=== PATIENT | female | born 1990 | race Caucasian/White ===

== ENCOUNTER 2016-08-04 07:31 | Day surgery (SDC) | payer OTHER ==
--- NOTE | 2016-08-03 17:32 | HP ---
KIRILL RIDDLE DATE OF SCHEDULED ADMISSION: August 15, 2016 PREOPERATIVE DIAGNOSIS: Desires tubal ligation. OPERATION PLANNED: Laparoscopic tubal ligation. HISTORY: The patient is a 25-year-old 2, para 2 woman with a last menstrual period of three weeks ago. She currently uses oral contraceptives but she wants her tubes tied. She states her family is complete. She understands the procedure is permanent, and there is no guarantee of success. Because of her hypertension, she does not want to keep using the control pills. PAST MEDICAL HISTORY: Has a history of: 1. Hypertension. 2. Acid reflux. CURRENT MEDICATIONS: 1. Omeprazole. 2. She is on an antihypertensive which she is not sure the name of. ALLERGIES: ALBUTEROL CAUSING A RASH. PAST SURGICAL HISTORY: None. SOCIAL HISTORY: Patient lives with her two children. She does not smoke, does not use alcohol. She is [place] speaking. FAMILY HISTORY: No major medical problems in her family. REVIEW OF SYSTEMS: Patient denies any fever, chills, nausea, vomiting, diarrhea, constipation. PHYSICAL EXAMINATION: GENERAL: She is a healthy appearing woman. VITAL SIGNS: Blood pressure is 138/82. HEENT: Normal. LUNGS: Clear. HEART: Normal S1 and S2. ABDOMEN: Soft, nontender, no guarding, no rebound. PELVIC: External genitalia and vagina are normal. Cervix, no motion tenderness. Uterus is normal size. Adnexa nontender, no masses. LABS: test is negative. IMPRESSION: Patient who desires tubal ligation. She understands the procedure is permanent. There is no guarantee of success. PLAN: Plan is to do a laparoscopic tubal ligation.
[~2016-08-04 07:31] MED LIST: FENTANYL 5 ML ONE; IV START KIT ONE; LACTATED RINGERS 1,000 ML ONE; MIDAZOLAM HCL 1 MG/ML 2ML VIAL ONE
[2016-08-04] MEDS ORDERED: BUPIVACAINE 0.5% (PRES FREE) 30 ML VIAL ONE (08:01)
[2016-08-04] MEDS ORDERED: SCOPOLAMINE 1.5 MG/72 HR 1 EACH PATCH TD ONE (08:15)
[2016-08-04] MEDS ORDERED: SODIUM CHLORIDE 0.9% FLUSH 10 ML ONE (08:16)
[2016-08-04] MEDS ORDERED: DEXAMETHASONE SOD PHOS 4 MG/1 ML VIAL ONE (08:47)
[2016-08-04] MEDS ORDERED: DIPHENHYDRAMINE HCL 50 MG/1 ML VIAL ONE (08:47)
[2016-08-04] MEDS ORDERED: ONDANSETRON 4 MG/2ML 2 ML VIAL ONE (08:47)
[2016-08-04] MEDS ORDERED: GLYCOPYRROLATE 0.2 MG/ML 1ML VIAL ONE (08:47)
[2016-08-04] MEDS ORDERED: ROCURONIUM BROMIDE 10 MG/ML DOSE IV ONE (08:47)
[2016-08-04] MEDS ORDERED: PROPOFOL 20 ML IV ONE (08:47)
[2016-08-04] MEDS ORDERED: NEOSTIGMINE METHYLSULFATE 1 MG/ML DOSE ONE (08:47)
[2016-08-04] MEDS ORDERED: LIDOCAINE 2% (PRES FREE) 5 ML VIAL ONE (08:47)
[2016-08-04] MEDS ORDERED: NALOXONE HCL 0.4 MG/ML VIAL IV PRN (08:54)
[2016-08-04] MEDS ORDERED: ONDANSETRON 4 MG/2ML 2 ML VIAL IV PRN (08:54)
[2016-08-04] MEDS ORDERED: FENTANYL 100 MCG/2 ML VIAL IV PRN (08:54)
[2016-08-04] MEDS ORDERED: PROMETHAZINE HCL 25 MG/ML VIAL IM PRN (08:54)
[2016-08-04] MEDS ORDERED: ATROPINE SULFATE 0.4 MG/1 ML VIAL IV PRN (08:54)
[2016-08-04] MEDS ORDERED: LACTATED RINGERS 1,000 ML IV SCH (09:00)
[2016-08-04] MEDS ORDERED: KETOROLAC TROMETHAMINE 30 MG/ML 1 ML VIAL ONE (09:05)
[2016-08-04] MEDS ORDERED: PROMETHAZINE HCL 25 MG/ML VIAL ONE (09:34)
[2016-08-04] MEDS ORDERED: LACTATED RINGERS 1,000 ML ONE (09:38)
[2016-08-04] MEDS ORDERED: HYDROMORPHONE HCL 1 MG/ML SYRINGE ONE ×2 (09:41→09:53)
[2016-08-04] MEDS: HYDROMORPHONE HCL 1 MG/ML SYRINGE IV PRN ×3 (09:42→09:57)
--- NOTE | 2016-08-04 09:49 | OP ---
Jaz Burroughs DATE: 08/04/2016 PREOPERATIVE DIAGNOSIS: Tubal ligation. POSTOPERATIVE DIAGNOSIS: Tubal ligation. OPERATION PERFORMED: Laparoscopic tubal ligation with using Falope rings. PROCEDURE: The patient was taken to the operating and general anesthesia was administered. She was placed in the dorsolithotomy position, prepped and draped in usual sterile fashion. Bimanual exam revealed a normal cervix and normal size uterus which was anteverted. No adnexal masses. Urinary bladder was drained and a Hulka uterine manipulator was inserted into the uterus. Surgeon changed gloves. Subumbilical skin incision was made with a scalpel through which a 5 mm Visiport was inserted. A pneumoperitoneum was then created. A second incision was made suprapubically through which a second 8 mm port was inserted. Findings in the pelvis were normal ovaries, tubes, and uterus. No adhesions. No endometriosis. Each tube was identified by noting its fimbriated end and each tube was ligated with a Falope ring leaving a 2 cm portion of knuckle tissue within the ring. Each area was then bathed with 10 mL of Marcaine. All instruments and gas were removed from the abdomen. The incisions were closed with interrupted sutures of 3-0 Plain. When removed the Hulka she had persistent bleeding from her cervix despite pressure. I then put a figure of eight suture of 2-0 Chromic in and this stopped the bleeding. The patient tolerated the procedure well and was taken to the recovery room in stable condition. All sponge, instrument, and needle counts were correct. Estimated blood loss 30 mL. JOB: [id number]
[2016-08-04] MEDS ORDERED: KETOROLAC TROMETHAMINE 30 MG/ML 1 ML VIAL IV PRN (10:03)
[2016-08-04] MEDS ORDERED: OXYCODONE/ACETAMINOPHEN 5/325 MG TABLET PO PRN (10:03)
[2016-08-04] MEDS: MORPHINE SULFATE 2 MG/ML SYRINGE IV PRN ×2 (10:22→10:35)
[2016-08-04] MEDS ORDERED: MORPHINE SULFATE 2 MG/ML SYRINGE ONE (10:34)
[2016-08-04] MEDS ORDERED: OXYCODONE/ACETAMINOPHEN 5/325 MG TABLET ONE (11:01)
== END 2016-08-04 11:44 | disposition home or self-care (01) ==
LOC: SDC 07:31
PROVIDERS: ATTEND Obstetrics & Gynecology
PROC: 0U574ZZ Destruction of Bilateral Fallopian Tubes, Percutaneous Endoscopic Approach (ICD-10-PCS; principal; 2016-08-04)
DX: Z30.2 Encounter for sterilization (principal); K21.9 Gastro-esophageal reflux disease without esophagitis; F17.200 Nicotine dependence, unspecified, uncomplicated
CPT/HCPCS: 58671; J1200; J1170 ×2; J3010; J1100; J2270; A9270 ×2; J2550; J1885; J2250; J2405; J7120 ×2